=== PATIENT | male | born 1955 | race Caucasian/White ===

== ENCOUNTER 2022-12-22 10:50 | Inpatient (IN) ==
--- NOTE | 2022-11-22 14:37 | PAT Medication Instructions ---
Medication Instructions Date of Service November 22, 2022 Home Medications aspirin 81 mg capsule 81 mg PO QAM carvedilol 25 mg tablet 25 mg PO BID gabapentin 300 mg capsule 300 mg PO BID gabapentin 300 mg capsule 300 mg PO HS PRN Pain losartan 100 mg-hydrochlorothiazide 25 mg tablet 1 tab PO QDL metformin 1,000 mg tablet 1,000 mg PO BID rosuvastatin 40 mg tablet 40 mg PO QAM ASK your prescriber and surgeon aspirin 81 mg capsule 81 mg PO QAM DO NOT take the morning of surgery losartan 100 mg-hydrochlorothiazide 25 mg tablet 1 tab PO QDL metformin 1,000 mg tablet 1,000 mg PO BID Take morning of surgery With a small sip of water, OTHERWISE NOTHING TO EAT OR DRINK AFTER MIDNIGHT: carvedilol 25 mg tablet 25 mg PO BID gabapentin 300 mg capsule 300 mg PO BID rosuvastatin 40 mg tablet 40 mg PO QAM Take evening before surgery carvedilol 25 mg tablet 25 mg PO BID gabapentin 300 mg capsule 300 mg PO BID gabapentin 300 mg capsule 300 mg PO HS PRN Pain metformin 1,000 mg tablet 1,000 mg PO BID Other Notes If you have any questions please call us at [phone] or [phone] or [phone] or [phone]
--- NOTE | 2022-11-28 11:29 | Anesthesiology Consultation ---
Date of Service November 28, 2022 Assessment & Plan (1) Encounter for pre-operative examination: - Check BSG AM DOS - COVID screening: Per assessment on 11/28: No known COVID-19 positive contacts or current COVID-19 related symptoms. Travel screen negative. At surgeon discretion if preop Covid testing being done. - Outpatient joint assessment: Pt currently scheduled for inpatient pathway. If surgeon requests review for outpatient joint pathway, patient is not recommended candidate for outpatient joint program from anesthesia standpoint. - Cardiology visit (10/26/22): "BP elevated, pulse acceptable..EKG independently reviewed and interpreted by myself today. Reveals NSR with nonspecific ST depression. Is having L total shoulder with Dr. Palacio at [facility] [place].. S/p 4V CABG 11/04, with fatigue, with recent normal nuclear, continue ASA 81 mg daily. Check echo and carotids.. Cardiac clearance- is able to achieve 4 METS of exercise. Is okay to clear from a moderate risk (6.6%) for a low risk procedure based on Vic criteria. - Cardiology note (11/17/22): "Carotids <50% bilat. Echo shows normal EF. Mildly narrow aortic valve which would not cause him any symptoms or issues. Will need repeat echo in 1 year." Chart Review Chart Review: Acceptable Risk for Surgery and Patient seen in Pre Admission Testing Teaching & Discussion Pre-Anesthesia Teaching/Discussion Notes: Instructed NPO after midnight before surgery,except medications with 15 cc of water. Medication instructions provided according to the PAT guidelines. History Surgery Operation Date: 12/22/22 08:15 Proposed Procedures p Left Anatomic Total Shoulder Arthroplasty - Maciej Palacio M.D. Height/Weight Height: 6 ft 3.75 in Weight: 108.7 kg Allergies Allergy/AdvReac Type Severity Reaction Status Date / Time atorvastatin [From Lipitor] AdvReac Intermediate Muscle Pain Verified 11/18/22 08:36 Medications Home Medications Medication Instructions Recorded Confirmed Last Taken aspirin 81 mg capsule 81 mg PO QAM 11/18/22 11/18/22 Unknown carvedilol 25 mg tablet 25 mg PO BID 11/18/22 11/18/22 Unknown gabapentin 300 mg capsule 300 mg PO BID 11/18/22 11/18/22 Unknown gabapentin 300 mg capsule 300 mg PO HS PRN Pain 11/18/22 11/18/22 Unknown losartan 100 1 tab PO QDL 11/18/22 11/18/22 Unknown mg-hydrochlorothiazide 25 mg tablet metformin 1,000 mg tablet 1,000 mg PO BID 11/18/22 11/18/22 Unknown rosuvastatin 40 mg tablet 40 mg PO QAM 11/18/22 11/18/22 Unknown spironolactone 25 mg tablet 25 mg PO DAILY 11/28/22 11/28/22 Unknown Past Medical History Medical History Aortic stenosis Mild aortic stenosis per 11/16/22 echo (ALDEN 2.0 cm, MG 11 mmHg) Chronic back pain Diabetes mellitus, type 2 NIDDM Hyperlipidemia Hypertension Kidney stones hx Myocardial Infarction 2013 > CABG x2 Follows with Dr. Brito Osteoarthritis Sciatica Umbilical hernia Present Exercise / Class Metabolic Activity III < 4 Walking/Shop/Light housework (one FS (no CP, + SOB)) Past Family History Family History Other No family history of adverse response to anesthesia Past Surgical History Surgical History History of cardiac cath 2013 > CABG x2 History of cholecystectomy History of coronary artery bypass graft CABG x2 (2013) History of tooth extraction S/P cystoscopy with ureteral stent placement + stone basket/possible lithotripsy S/P epidural steroid injection Past Anesthesia History No Hx of Anesthesia Complications and No Family Hx of Anesthesia Complications History of PONV No Hx of PONV and Hx of Motion Sickness (Remote hx) Social History Smoking Status: Never smoker Do You Dip or Chew Tobacco: No Hx Alcohol Use: No Hx Substance Use: No substance use type: does not use Review of Systems Patient denies chest pain, shortness of breath, fever, chills, cough, wheezing, palpitations. Physical Exam Vital Signs VITALS BP 155/85 P 69 TEMP 98.2 SP02 96%RA RESP 16 PHYSICAL Mildly decreased cervical extension range of motion. Full TMJ range of motion. TMD 3.5 finger breaths Mallampati Score 3 Dentition: several missing teeth including upper front Lungs: clear throughout to auscultation Cardiac: regular rate and rhythm, I-II/ systolic murmur Spine: normal Carotid arteries: negative bruit Extremities: no LE edema Lab Results Anesthesia Preop Results Results Anesthesia Widget: WBC 8.30 K/ul (4.8-10.8) 11/28/22 Hgb 14.7 g/dl (14.0-18.0) 11/28/22 Hct 41.7 % (42.0-52.0) L 11/28/22 Plt 212 K/uL (130-400) 11/28/22 Na 140 mmol/L (136-145) 11/28/22 K 4.1 mmol/L (3.5-5.1) 11/28/22 Cl 104 mmol/L (98-107) 11/28/22 CO2 29 mmol/L (21-32) 11/28/22 BUN 19 mg/dl (6-23) 11/28/22 Creat 0.95 mg/dl (0.6-1.4) 11/28/22 Glucose Level 110 mg/dl (70-99(Fasting)) H 11/28/22 PT 11.4 Seconds (9.0-12.0) 11/28/22 PTT 30.0 Seconds (21.0-31.0) 11/28/22 INR 1.0 (0.9-1.1) 11/28/22 HA1c 7.1 % (4.5-5.6) H 11/28/22 Urine Color Dark Yellow 11/28/22 Urine Appearance Clear (Clear) 11/28/22 Urine pH 6.5 (4.5-7.5) 11/28/22 Urine Specific [place] 1.024 (1.000-1.030) 11/28/22 Urine Protein Negative (Negative) 11/28/22 Urine Glucose (UA) Negative (Negative) 11/28/22 Urine Ketones Negative (Negative) 11/28/22 Urine Blood Negative (Negative) 11/28/22 Urine Nitrite Negative (Negative) 11/28/22 Urine Bilirubin Negative (Negative) 11/28/22 Urine Urobilinogen Negative (Negative) 11/28/22 Urine Leukocyte Esterase Negative (Negative) 11/28/22 Blood Type O Positive 11/28/22 Antibody Screen NEGATIVE 11/28/22 Testing Electrocardiogram Date: 10/26/22 SR at 75bpm. NS ST depression. Echo 11/16/22* Chest X-Ray Date: 11/28/22 FINDINGS: Median sternotomy wires are unchanged. The cardiomediastinal silhouette is normal. The lungs are clear. No evidence of pleural effusion or pneumothorax. Degenerative changes are seen in the thoracic spine. IMPRESSION: No acute chest disease. Echocardiogram Date: 11/16/22 EF 55-60%. Calcified and restricted aortic valve with mild aortic stenosis (ALDEN 2.0 cm, MG 11 mmHg). Moderate LAE. Grade 1 diastolic dysfunction. Dilated IVC, consistent with increased right atrial pressure. Mild MR. Stress Test Date: 11/29/18 Type: nuclear This is a normal maximal exercise SPECT Myocardial perfusion study.There is no evidence of ischemia or infarction. LV is normal in size. LVEF 56%. Prognostically, this is a low risk study. Other Testing Cerebrovascular duplex (11/16/22) Mild right/left carotid artery disease with less than 50% stenosis in the right/left proximal ICA. Antegrade vertebral artery flow bilaterally. COVID-19 Risk Screen Screening Information COVID-19 Screen Date: 11/28/22 Exposure 21 Days Family/Household +COVID Last 21 Days: No Exposure 10 Days Any COVID Exposure Last 10 Days: No Symptoms Last 10 Days Experienced COVID Sx Last 10 Days: No + COVID 0-90 Days COVID + in Last 0-90 Days: No
--- NOTE | 2022-12-21 16:55 | History & Physical Report ---
Date of Service December 21, 2022 Assessment & Plan (1) Primary osteoarthritis, left shoulder: Plan: He has severe left shoulder glenohumeral joint arthritis. We discussed initial conservative management with intra-articular steroid injections versus definitive surgical intervention with total shoulder arthroplasty. He declined injection since they would not significantly improve his function or range of motion, and not definitively improve his pain. He would much prefer to proceed immediately to total shoulder arthroplasty. His rotator cuff is intact, and he is therefore a candidate for an anatomic total shoulder replacement. He is in agreement this plan. Risks, benefits, and alternatives of surgery were explained in detail. The surgical procedure, as well as postoperative recovery and rehabilitation, was also explained in detail. Risks include bleeding; infection; damage to surrounding structures such as nerves, blood vessels, and tendons that run in the area; persistent pain or stiffness; hardware failure; dislocation; brachial plexus palsy; blood clots; or need for further surgery. The patient understands all of this and wishes to proceed with surgery. Risks will be reviewed on the day of surgery and informed consent obtained. History of Present Illness Chief Complaint: Left shoulder pain and stiffness Primary Care Provider: Soraida Torres MD Mr. Arauz is a 67-year-old [id number] male who has had chronic left shoulder pain for many years with progressive worsening of pain and motion over time. Allergies Allergy/AdvReac Type Severity Reaction Status Date / Time atorvastatin [From Lipitor] AdvReac Intermediate Muscle Pain Verified 11/18/22 08:36 Home Medications Medication Instructions Recorded Confirmed Type aspirin 81 mg capsule 81 mg PO QAM 11/18/22 11/18/22 History carvedilol 25 mg tablet 25 mg PO BID 11/18/22 11/18/22 History gabapentin 300 mg capsule 300 mg PO BID 11/18/22 11/18/22 History gabapentin 300 mg capsule 300 mg PO HS PRN Pain 11/18/22 11/18/22 History losartan 100 1 tab PO QDL 11/18/22 11/18/22 History mg-hydrochlorothiazide 25 mg tablet metformin 1,000 mg tablet 1,000 mg PO BID 11/18/22 11/18/22 History rosuvastatin 40 mg tablet 40 mg PO QAM 11/18/22 11/18/22 History spironolactone 25 mg tablet 25 mg PO DAILY 11/28/22 11/28/22 History Past Med/Surg History Medical History Aortic stenosis Mild aortic stenosis per 11/16/22 echo (ALDEN 2.0 cm, MG 11 mmHg) Chronic back pain Diabetes mellitus, type 2 NIDDM Hyperlipidemia Hypertension Kidney stones hx Myocardial Infarction 2013 > CABG x2 Follows with Dr. Brito Osteoarthritis Sciatica Umbilical hernia Present Surgical History History of cardiac cath 2013 > CABG x2 History of cholecystectomy History of coronary artery bypass graft CABG x2 (2013) History of tooth extraction S/P cystoscopy with ureteral stent placement + stone basket/possible lithotripsy S/P epidural steroid injection Family History Other No family history of adverse response to anesthesia Social History Smoking Status: Never smoker Second Hand Exposure: No; Do You Dip or Chew Tobacco: No; Tobacco Cessation Education Requested by Patient: No Hx Alcohol Use: No Hx Substance Use: No Preferred Language: Latvian Communication Ability: Effective Warp Knit Operator Required: No Beliefs That Will Affect Care: None Current Living Situation: Spouse Other Information That Helps Us Care for You: No Feels Safe at Home: Yes Safety Concerns: Feels Safe At This Time Assistive Devices: Glasses Physical Exam Physical Exam: Examination of the left shoulder shows moderate limitation in shoulder range of motion due to pain, with palpable crepitus during motion. Rotator cuff strength is well maintained. Results & Data Diagnostic Findings X-rays of the left shoulder show severe glenohumeral joint arthritis with complete joint space loss and large osteophyte formation. MRI shows that the rotator cuff is intact.
[~2022-12-22 10:50] MED LIST: ACETAMINOPHEN 500 MG TAB PO SCH; BUPIVACAINE 0.5 % 5 MG/1 ML PF 10ML VIAL ONE; CeleBREX 200 MG CAP PO SCH; DEXAMETHASONE SOD INJ 4 MG/ML VIAL ONE; FAMOTIDINE 20 MG TAB PO SCH; GABAPENTIN 300 MG CAP PO SCH; LIDOCAINE 2% 2 ML VIAL/AMP(20MG/ML) INFIL ONE; LR 15ML/HR IV SCH; LR 500ML BOLUS, THEN 15ML/HR IV SCH; METOCLOPRAMIDE HCL 10 MG TABLET PO SCH; MIDAZOLAM HCL 1 MG/ML 2ML VIAL ONE; ONDANSETRON INJ 2 MG/ML 2 ML VIAL ONE; PREGABALIN 75 MG CAP PO SCH; PROPOFOL IV EMULSION 10 MG/ML 20 ML VIAL IV ONE; ROCURONIUM BROMIDE 10 MG/ML 5 ML VIAL IV ONE; SUGAMMADEX SODIUM 200 MG/2 ML VIAL IV ONE; TRANEXAMIC ACID 1,000 MG **IV Intra-op IV SCH; TRANEXAMIC ACID 1,000 MG **IV Pre-op IV SCH; ceFAZolin 2000MG 2,000 MG/15 ML SYR IV SCH; dexAMETHasone 4 MG TAB PO SCH; fentaNYL citrate PF 100 MCG/2 ML VIAL ONE
[2022-12-22] MEDS ORDERED: ePHEDrine sulfate 50 MG/ML AMP IV PRN (12:46)
[2022-12-22] MEDS ORDERED: fentaNYL citrate PF 100 MCG/2 ML VIAL IV PRN (12:46)
[2022-12-22] MEDS ORDERED: ATROPINE SULFATE 0.1 MG/ML 10ML SYR IV PRN (12:46)
[2022-12-22] MEDS ORDERED: ONDANSETRON INJ 2 MG/ML 2 ML VIAL IV PRN ×2 (12:46→17:52)
--- NOTE | 2022-12-22 13:52 | History & Physical Bridge Note ---
Date of Service December 22, 2022 History & Physical Bridge Note I have examined the patient, reviewed the History & Physical and in the interval since the performance of the History & Physical I have noted the following changes of clinical significance: no changes noted
--- NOTE | 2022-12-22 16:14 | Operative Report ---
Post Operative Report Pre & Post Diagnosis Operation Date: 12/22/22 13:05 Pre-Op Diagnosis: Left shoulder primary glenohumeral joint arthritis Post-Op Diagnosis: Left shoulder primary glenohumeral joint arthritis, severe biceps tenosynovitis I identified the patient and participated in the time-out.: Yes Procedure Operation Date: 12/22/22 13:05 Actual Procedures Left anatomic stemless total shoulder arthroplasty (24869) Open biceps tenodesis (29324) - Maciej Palacio M.D. Surgeon Maciej Palacio MD Educational Recruiter Moises Flores PA-C Estimated Blood Loss 75 Findings Consistent with Post-Op Diagnosis Specimens None Drains None Anesthesia Type General Regional Complications none Disposition Disposition: Recovery Room Indications Mr. Arauz is a 67-year-old male with longstanding left shoulder pain and stiffness. History, clinical exam, and imaging were consistent with the above diagnosis. Risks, benefits, and alternatives of surgery were explained in detail. The patient understood all this and wished to proceed. Description of Procedure Components Implanted: Tornier Anatomic Total Shoulder implants Perform+ Pegged Cortiloc polyethylene glenoid: Large, 40 radius Simpliciti stemless Nucleus: 3 Humeral head: 52 x 23mm Patient was identified in the preoperative holding area. Operative extremity was marked. Regional blockade was given by the Anesthesia Staff. Patient was then brought back to the operating room, and general anesthesia was induced without complication. Appropriate weight-based dose of Ancef was infused intravenously for antibiotic prophylaxis. The patient was then placed in the beachchair position. Left arm was then prepped and draped in a standard sterile fashion using Chlorhexidine prep. A standard deltopectoral incision was made through the skin and subcutaneous tissue. The cephalic vein was identified and retracted medially. Small branches to the deltoid were coagulated as necessary. The clavipectoral fascia was then incised and the subdeltoid space was opened. The rotator cuff was found to be intact, and I therefore decided to perform an anatomic total shoulder arthroplasty as planned preoperatively. In the area of the bicipital groove, there was a very large soft tissue outpouching along the course of the biceps tendon distal to the shoulder joint. This area was opened and found to be consistent with a very large amount of tenosynovitis around the proximal biceps tendon distal to the level of the lesser tuberosity but proximal to the pectoralis tendon; this tenosynovitis was debrided and excised. The biceps tendon was identified within the bicipital groove and tenodesed at the superior border of the pectoralis tendon with #2 FiberWire suture. The biceps tendon was then divided proximal to the tenodesis site and the rotator interval was opened. The proximal portion of the biceps tendon was excised. Lesser tuberosity osteotomy was then performed to detach the subscapularis off of the proximal humerus; this was tagged with a #0 Vicryl suture. The glenohumeral joint was then dislocated, and large osteophytes were debrided with a ronguer. The h umeral head cut was then made in the appropriate inclination and version. The cancellous bone within the proximal humerus was found to be of good quality, and I felt that it would support a stemless humeral implant. The Simpliciti guideplate was then placed over the humeral cut, and the central guidewire was inserted and advanced through the lateral humeral cortex. The corresponding reamer was then used to ensure the humeral cut surface was flat, and then the central drill hole was made over the guidewire. The broach for the nucleus was then impacted, and a protective cap was then placed over the nuclear broach. I then turned my attention to the glenoid. The proximal stump of the biceps tendon was excised, along with the labrum circumferentially around the glenoid. Numerous subchondral cysts were identified within the glenoid; this soft tissue within these cysts was curetted out down to cancellous bone. The Blueprint drill guide was then positioned on the glenoid, and the guidepin was then inserted. The reamer was then inserted over the guidepin and an reamed to an appropriate depth. The central peg drill hole was made over the guidewire. The drill guide for the peripheral glenoid pegs was then placed onto the glenoid surface, and 3 peripheral drill holes made within the glenoid in an appropriate orientation. Morselized cancellous bone was packed into the fins of the Cortiloc central peg, and bone cement was placed into the 3 peripheral glenoid peg holes and the voids left by the subchondral cysts. The glenoid component was then implanted into place, and excess cement removed. A trial humeral head was inserted, and a trial reduction was carried out. Once I achieved acceptable joint stability and range of motion with the trial implants, the trials were removed and the final humeral implants impacted into position. Prior to final impaction of the humeral component, I inserted two #2 FiberWire sutures for subsequent repair of the lesser tuberosity osteotomy. I then took the shoulder through full range of motion to ensure good stability and acceptable motion. Wound was then copiously irrigated with sterile saline. The lesser tuberosity and its attached subscapularis were then repaired to the lesser tuberosity with the previously placed #2 FiberWire sutures. The rotator interval was then closed with the shoulder held in external rotation with #2 FiberWire suture. Deep fascia was closed with 0 V-lock suture. Subcutaneous tissue was closed with 2-0 V-lock, and skin was closed with 3-0 V-lock. Skin was then sealed with Dermabond. Sterile dressings were then applied with a waterproof silver- impregnated dressing, and the arm was placed into a sling. The patient was awakened from anesthesia and taken to the Post Anesthesia Care Unit in stable condition. There were no immediate complications from the procedure. I was present and scrubbed for the entire procedure, with the exception of final skin closure and dressing application. Due to the complex nature of the procedure, the entire surgery was performed with the operational assistance of Moises Flores PA-C. The teachers assistant, under direct supervision, was involved in the performance of all aspects of the surgical procedure including hemostasis, tissue incision and retraction, instrument management, patient positioning, and wound closure. I attest to the content of the Intraoperative Record and any orders documented therein. Any exceptions are noted below.
--- NOTE | 2022-12-22 17:14 | Anesthesiology Progress Note ---
Date of Service December 22, 2022 Anesthesia Post Procedure Vital Signs Vital Signs: Temp Pulse Pulse Resp BP Pulse Ox O2 Del Method 12/22/22 17:10 78 20 173/99 H 97 Room Air 12/22/22 17:00 79 19 168/94 H 98 Oxymask 12/22/22 16:50 74 14 144/80 H 99 Oxymask 12/22/22 16:40 70 12 149/82 H 98 Oxymask 12/22/22 16:34 36.1 C L 78 18 157/88 H 98 Oxymask 12/22/22 11:31 36.9 C 69 20 174/83 H 98 Room Air O2 Flow Rate 12/22/22 17:10 12/22/22 17:00 6 12/22/22 16:50 10 12/22/22 16:40 10 12/22/22 16:34 10 12/22/22 11:31 Transfer of Care Handoff Completed per policy Notes Mental Status: alert / awake / arousable Patient Amnestic to Procedure: Yes Nausea / Vomiting: adequately controlled Pain: adequately controlled Airway Patency, RR, SpO2: stable & adequate BP & HR: stable & adequate Hydration State: stable & adequate Anesthetic Complications: no major complications apparent
[2022-12-22] MEDS ORDERED: NALOXONE HCL 0.4 MG/1 ML VIAL/CARP IV PRN (17:52)
[2022-12-22] MEDS ORDERED: MAGNESIUM HYDROXIDE SUSP 30 ML UDC PO PRN (17:52)
[2022-12-22] MEDS ORDERED: PHARMACY GLYCEMIC MGMT CONSULT PRN (17:52)
[2022-12-22] MEDS ORDERED: oxyCODONE HCL IR 5 MG TAB (IMMEDIATE RELEASE) PO PRN (17:52)
[2022-12-22] MEDS ORDERED: bisacodyL 10 MG SUPP PR PRN (17:52)
[2022-12-22] MEDS ORDERED: METOCLOPRAMIDE HCL INJ 5 MG/ML 2 ML VIAL IV PRN (17:52)
[2022-12-22] MEDS ORDERED: SODIUM CHLORIDE 0.9% 1000ML 1,000 ML IV SCH (17:52)
[2022-12-22] MEDS: ROPIVACAINE 0.5% HCL/PF 150 MG, BUPIVACAINE 0.75% MPF 20 ML, EPINEPHrine 30MG/30ML (OR ... INSTIL SCH ×2 (18:17→18:22)
[2022-12-22] MEDS: ACETAMINOPHEN 500 MG TAB PO SCH (18:24)
[2022-12-22] MEDS ORDERED: INSULIN ASPART PER UNIT CHARGE SC ONE (18:30)
--- NOTE | 2022-12-22 19:10 | XRay Report ---
XR shoulder LT min 2V routine CLINICAL HISTORY: Post shoulder surgery TECHNIQUE: 3 views of the left shoulder were obtained. Comparison: None available at the time of this dictation. FINDINGS: Patient is status post shoulder arthroplasty with expected postsurgical changes including soft tissue swelling and subcutaneous emphysema. No periarticular lucency or hardware fracture is seen. IMPRESSION: Expected postoperative appearance status post placement of shoulder arthroplasty. ACT 112: Negative or not required by law. Electronically signed by: Carlos Tolbert M.D. 12/22/2022 7:08 PM
[2022-12-22] MEDS: DOCUSATE SODIUM 100 MG CAP PO SCH (20:00)
[2022-12-22] MEDS: carvediloL 25 MG TAB PO SCH (20:00)
[2022-12-22] MEDS: GABAPENTIN 300 MG CAP PO SCH (20:00)
[2022-12-22] MEDS: IBUPROFEN 600 MG TAB PO SCH (20:01)
[2022-12-22] MEDS ORDERED: SENNA 8.6 MG TAB PO SCH (21:00)
[2022-12-22] MEDS: INSULIN ASPART PER UNIT CHARGE SC SCH (21:08)
[2022-12-22] MEDS: ceFAZolin 2000MG 2,000 MG/15 ML SYR IV SCH (22:17)
[2022-12-23] MEDS: ACETAMINOPHEN 500 MG TAB PO SCH ×2 (00:09→05:37)
[2022-12-23] MEDS: IBUPROFEN 600 MG TAB PO SCH ×2 (04:12→09:37)
[2022-12-23] MEDS: ceFAZolin 2000MG 2,000 MG/15 ML SYR IV SCH (05:38)
--- NOTE | 2022-12-23 06:07 | Orthopedic Progress Note ---
Date of Service December 23, 2022 Assessment & Plan (1) Primary osteoarthritis, left shoulder: Plan: Postop day 1 status post left total shoulder arthroplasty PT/OT protocols. Nonweightbearing left upper extremity. DVT prophylaxis-aspirin p.o. daily, SCDs Pain management as written. DC planning-patient is planning for discharge to home with outpatient PT Admission and Anticipated Discharge Date Admission Date: December 22, 2022 Subjective Postop day 1 Patient sitting up in bed awake and alert. No complaints this morning. Pain is controlled. Patient states that his block is still working fairly well. He is hoping to go home today Physical Exam Physical Exam: Silverlon dressing is clean, dry, and intact. Sling is in place. Patient continues to have some residual nerve block that is functioning. He is able to move his fingers but has weakness in the left wrist. Weakness in toppiece cutter strength. Continues to have some decreased sensation in the fingers. Results & Data Vital Signs (Past 12 Hours) Vital Signs Temp Pulse Resp BP Pulse Ox O2 Del Method 12/23/22 04:00 36.6 C 79 16 146/77 H 96 Room Air 12/23/22 00:10 36.5 C 78 18 139/63 96 Room Air 12/22/22 20:22 36.7 C 57 L 18 184/105 H 97 Room Air 12/22/22 19:22 36.5 C 87 18 148/71 H 96 Room Air 12/22/22 18:48 36.6 C 84 16 162/84 H 97 Room Air 12/22/22 18:17 36.4 C L 80 18 163/84 H 95 Room Air 12/22/22 18:09 Room Air
[2022-12-23 06:52] LABS: Basophils # (auto) 0.02 K/uL (0-0.2); Basophils % (auto) 0.2 %; Hematocrit (blood only) 36.2 % (42.0-52.0); Hemoglobin 12.6 g/dl (14.0-18.0); Immature Granulocytes # (auto) 0.08 K/uL (0.01-0.20); Immature Granulocytes % (auto) 0.6 %; Lymphocytes # (auto) 1.15 K/uL (1.2-3.4); Lymphocytes % (auto) 8.7 %; Mean Corpuscular Hemoglobin 29.8 pg (25.0-34.0); Mean Corpuscular Hgb Conc 34.8 g/dL (32.0-36.0); Mean Corpuscular Volume 85.6 fL (80.0-100.0); Mean Platelet Volume 10.5 fL (9.4-12.4); Monocytes % (auto) 6.1 %; Neutrophils # (auto) 11.11 K/uL (1.40-6.50); Neutrophils % (auto) 84.4 %; Platelet Count 186 K/uL (130-400); RDW Coefficient of Variation 12.3 % (11.5-14.5); RDW Standard Deviation 38.2 fL (36.4-46.3); Red Blood Count 4.23 M/uL (4.70-6.10); White Blood Count 13.16 K/ul (4.8-10.8)
[2022-12-23 07:08] LABS: BUN Creatinine Ratio 20.2 (10-20); Creatinine Clr Calc Pharmacy 89.4 ml/min; Est GFR (African American) 81.5 ml/min; Est GFR (Non-African American) 70.4 ml/min; Potassium 3.9 mmol/L (3.5-5.1)
[2022-12-23] MEDS: INSULIN ASPART PER UNIT CHARGE SC SCH (08:58)
[2022-12-23] MEDS ORDERED: MULTIVITAMIN TAB PO SCH (09:00)
[2022-12-23] MEDS ORDERED: ASPIRIN 325 MG ECTAB PO SCH (09:00)
[2022-12-23] MEDS ORDERED: SPIRONOLACTONE 25 MG TAB PO SCH (09:00)
[2022-12-23] MEDS ORDERED: NovoLIN-N (NPH) PER UNIT CHARGE SQ ONE (09:00)
[2022-12-23] MEDS ORDERED: ROSUVASTATIN CALCIUM 20 MG TAB PO SCH (09:00)
[2022-12-23] MEDS: GABAPENTIN 300 MG CAP PO SCH (09:36)
[2022-12-23] MEDS: carvediloL 25 MG TAB PO SCH (09:37)
[2022-12-23] MEDS: DOCUSATE SODIUM 100 MG CAP PO SCH (09:38)
[2022-12-23] MEDS ORDERED: LOSARTAN/HCTZ 50/12.5MG TAB PO SCH (11:30)
--- NOTE | 2022-12-23 17:59 | Discharge Summary ---
Date of Service December 23, 2022 Admission HPI Per Admitting Provider Mr. Arauz is a 67-year-old [id number] male who has had chronic left shoulder pain for many years with progressive worsening of pain and motion over time. Principal Diagnosis Left shoulder primary glenohumeral joint arthritis Discharge Data Allergies Allergy/AdvReac Type Severity Reaction Status Date / Time atorvastatin [From Lipitor] AdvReac Intermediate Muscle Pain Verified 12/22/22 11:35 Procedures Performed Operation Date: 12/22/22 13:05 Actual Procedures p Left Anatomic Total Shoulder Arthroplasty(Left) - Maciej Palacio M.D. Ordered Studies 12/22/22 05:00 US - OR guided needle placemen Routine Hospital Course (1) Primary osteoarthritis, left shoulder: Patient underwent a left anatomic stemless total shoulder arthroplasty on the date of admission. Patient tolerated the procedure well and was transferred up to the general orthopedic surgery floor in stable condition. Perioperative antibiotic coverage was initiated, and continued for 24 hours postoperatively. DVT prophylaxis was initiated consisting of SCDs and aspirin 325 mg daily. Perioperative pain control regimen was transitioned to strictly oral pain medications by postoperative day 1. On postoperative day 1 the patient was doing very well. Pain was well controlled, and patient was mobilizing well with therapy. Patient was determined be safe and ready for discharge to home. Total Time Total Time Spent Total Time Spent (In Minutes): 15 Discharge Plan Discharge Items Patient Disposition: Home - Self-Care Reason For Visit: POST SURGICAL CARE Discharge Diagnosis: Left shoulder primary glenohumeral joint arthritis Activity: Per Instructions section Weightbearing: Left non-weightbearing Non-emergency contact: Surgeon Call non-emergency contact if: your pain is not controlled, your temperature is above 101.5, your wound has increased redness and your wound has increased drainage Follow-up/Referrals: Maciej Palacio M.D. [Physician] - Soraida Torres MD [Primary Care Provider] - Diet: Carb Consistent or DM2 Addtl Attending Provider Instructions: Things to Watch Out For -Go to the Emergency Room if you have sudden onset of nausea, vomiting, chest pain, shortness of breath, or uncontrollable pain. -Call the clinic or go to the Emergency Room if you have a sudden increase in the amount of wound drainage or the drainage becomes thick, yellow or green, or foul-smelling. -For routine questions, call the clinic at [phone] during regular business hours (8am-5pm). For urgent issues after regular business hours, you may call the clinic to be connected to the on-call physician. Dressings -A special waterproof, silver-impregnated dressing was placed on your shoulder. Keep this dressing in place for 1 week after surgery. You may shower with the waterproof dressing in place, but do not soak the dressing in the bathtub or pool. -One week after surgery, you may remove the waterproof dressing. You may continue to shower, and let water run BRIEFLY over the incision, but do not soak the incision in the bathtub or pool for 2 weeks. You may also gently clean the incision with mild soap and water; pat the incision dry after cleaning-do not rub the incision. Apply a new dressing daily thereafter. Shoulder Exercises -Keep your operative shoulder in the sling for comfort, except as detailed below. -You should come out of the sling 4-5 times a day for passive pendulum exercises: lean over and swing your arm in a circular pattern. -You should also do active-assisted forward flexion exercises: use your opposite hand to lift your operative arm forward to 90 degrees. -Do not flex your elbow (curl motion) or supinate your forearm (rotating palm up) against resistance. -Do not use your arm to push yourself up out of bed or up from a seated position. -Subscapularis repair: Do not externally rotate your arm past neutral rotation (forearm pointed straight out from your body) or internally rotate your arm (pull your forearm towards your body) against resistance. Do not abduct your shoulder past 90 degrees (bring your arm out to the side past shoulder level). Ice Pack -You may use an ice pack for pain relief. You should use it 20-30 minutes at a time. Place a towel between the ice pack and your skin to prevent frostbite. -You should use the ice pack fairly regularly for the first 1-2 weeks after surgery to help reduce pain and inflammation. -About 2 weeks after your surgery, you should start using heat to loosen up your shoulder prior to doing your stretching exercises, then use the cooling sleeve after your exercises are complete to reduce swelling and pain. Pain Medicines -Your prescriptions for pain medications have already been sent to the pharmacy on file at [facility]. -You have been prescribed an anti-inflammatory (Motrin/ibuprofen) and a non- narcotic pain medicine (Tylenol/acetaminophen). These are your primary pain medications. Take them each every 6 hours as instructed. It is recommended that you stagger these medicines every 3 hours (i.e. take ibuprofen at 8:00 am, then acetaminophen at 11:00 am, then ibuprofen at 2:00 pm, etc) -DO NOT take any additional anti-inflammatories (Advil, Aleve/naproxen, Mobic/meloxicam, Celebrex) or any additional Tylenol/acetaminophen products with these prescribed medications. -You have also been prescribed an additional narcotic pain medication (oxycodone). Take this medicine ONLY for breakthrough pain not controlled by the ibuprofen and acetaminophen. -Do not drive or operate heavy machinery while taking the narcotic medication. -Common side effects of narcotic pain medicines include itching, nausea, constipation, and feeling "loopy". However, if you develop a rash or hives, stop taking the medicine and call the clinic. If you develop swelling in your throat or difficulty breathing, go to the Emergency Room or call 911 IMMEDIATELY. -You may take over the counter stool softeners if needed for constipation. Aspirin -Take a full strength (325mg) aspirin every day for 4 weeks (28 days) to prevent blood clots. -If you were taking a baby aspirin (81mg) prior to surgery, you may resume taking this 81mg dose after you complete the 28-day course of the 325mg strength dose; do not take the 325mg dose in addition to your 81mg dose. -Be aware that you will bruise easier while taking Aspirin; this is normal. However, if you develop a significantly large area of swelling after an injury, or have a cut that will not stop bleeding, call the clinic or go to the Emergency Room immediately. Pending Studies at Discharge: No Stand-Alone Forms: My [facility] Medications and [place] Order Prescriptions: Continued carvedilol 25 mg Tablet 25 mg PO BID Rx Instructions: must administer with a meal/food losartan-hydrochlorothiazide 100-25 mg Tablet 1 tab PO QDL metformin 1,000 mg Tablet 1,000 mg PO BID gabapentin 300 mg Capsule 300 mg PO BID gabapentin 300 mg Capsule 300 mg PO HS PRN (Reason: Pain) rosuvastatin 40 mg Tablet 40 mg PO QAM spironolactone 25 mg Tablet 25 mg PO DAILY Held aspirin 81 mg Capsule 81 mg PO QAM Hold Instructions: Resume on 01/20/23. Take Aspirin 325mg daily (sent to your pharmacy) for 4 weeks after surgery, then resume your normal 81mg dose. Discharge Orders: Discharge Order (Routine); Ordered 12/23/22 Ordered By: Clayton Buckley/Other Patient Handouts: High Blood Sugar (Hyperglycemia), Hypoglycemia (Low Blood Sugar), Managing Type 2 Diabetes Admission Data Admit Date/Time: 12/22/22 16:42 Attending Provider: Maciej Palacio Admit Provider: Maciej Palacio Primary Care Provider: Soraida Torres Other Interventions: Discharge Summary Assessment (RN) Last Done: 12/23/22 09:55
== END 2022-12-23 10:19 | disposition home or self-care (01) | DRG 483 ==
LOC: ASU 10:50 → 3E 16:42